=== PATIENT | female | born 1995 | race Caucasian/White ===

== ENCOUNTER → 2016-10-15 | Outpatient (CLI) | payer BC ==
--- NOTE | 2016-10-15 14:44 | DI ---
MRI MRA HEAD W/O CN,10/15/2016 9:54 AM: Clinical History: Migraine with aura. Previous Exam: None at this facility. Findings: Multiplanar MR images are obtained through the brain as part of a 3-D [id number] protocol, and de monstrate a normal-appearing [place] [place]. The distal internal carotid arteries are normal. The b asilar artery and vertebral arteries are normal. There is no aneurysmal dilation. The anterior communicating arteries and posterior communicating arteries are intact. Impression: Normal [place] [place] [address] [place].
--- NOTE | 2016-10-15 15:39 | DI ---
MRI BRAIN W/O CN,10/15/2016 9:54 AM: Clinical History: Migraine headaches. Previous Exam: MRA performed on the same date. Findings: Multiplanar MR images are obtained through the brain without contrast, and demonstrate normal, symmet christiana ventricles and other CSF containing spaces. There is no mass, hemorrhage nor midline shift. The s urrounding soft tissue and osseous structures are unremarkable. The midline structures are normal. Th e parasellar region, corpus callosum and cerebellopontine angles are normal. There is no evidence of Chiari malformation. Signal within the clivus is normal. The upper cervical spine is unremarkable. Impression: Normal CT head.
== END ==
LOC: MRI 09:51
PROVIDERS: ATTEND Nurse Practitioner Family
DX: G43.109 Migraine with aura, not intractable, without status migrainosus (principal)
CPT/HCPCS: 70544; 70551